=== PATIENT | female | born 1955 | race Caucasian/White ===

== ENCOUNTER 2019-01-17 10:45 | Inpatient (IN) | payer OTHER, MEDICARE ==
[2019-01-11 16:45] VITALS: BMI 26.2
--- NOTE | 2019-01-17 07:33 | HP ---
History & Physical Update - History History: No Change - Physical Physical: No Change - Assessment Assessment: No Change - Plan Plan: No Change (Initial H&P copmpleted on 12/29/18 by her PCP is complete & accurate. No new medication or complaints. Chronic LBP (> 6 years) with RLE radiculopathy. Here today for L4/5 laminectomy.)
[2019-01-17] MEDS: oxyCODONE HCL 10 MG SUSTAINED ACTING TABLET PO STA (11:30)
[2019-01-17] MEDS ORDERED: MIDAZOLAM HCL 2 MG/2 ML SINGLE DOSE VIAL ONE ×3 (13:46→16:23)
[2019-01-17] MEDS ORDERED: BUPIVACAINE HCL/PF 0.5% (5 MG/ML) 30 ML VIAL IJ ONE (13:46)
[2019-01-17] MEDS ORDERED: GUM MASTIC/STORAX/MSAL/ALCOHOL 1 DRP DROPSBTL MC ONE (14:23)
[2019-01-17] MEDS ORDERED: methylPREDNISolone ACET (DEPO) 40 MG/1 ML VIAL ONE (14:23)
[2019-01-17] MEDS ORDERED: LIDOCAINE 1%/EPI 1:100000 (20 ML MULTI DOSE VIAL) ONE (14:23)
[2019-01-17] MEDS ORDERED: BUPIVACAINE HCL/PF 0.5% (5MG/ML) 10 ML VIAL ONE (14:40)
[2019-01-17] MEDS ORDERED: ceFAZolin SODIUM 1 GM VIAL ONE (15:01)
[2019-01-17] MEDS ORDERED: ONDANSETRON 4 MG/2 ML VIAL IVPUSH PRN (17:37)
--- NOTE | 2019-01-17 17:39 | OP ---
Operative Note - Note: Operative Date: 01/17/19 Pre-Operative Diagnosis: L4/5 stenosis with RLE radiculopathy Operation: L4/5 laminectomy (bilateral); repair durotomy (primarily) Findings: small dural tear (posterior, LUQ) Post-Operative Diagnosis: Same as Pre-op Surgeon: Paco Guy Floor Scraper: Melody Antoine Anesthesia: Spinal Estimated Blood Loss (mls): 30 Fluid Volume Replaced (mls): 1,300 Operative Report Dictated: Yes
[2019-01-17] MEDS ORDERED: oxyCODONE HCL 5 MG TABLET PO PRN (17:40)
[2019-01-17] MEDS ORDERED: ACETAMINOPHEN 1000 MG/100 ML VIAL (NON FORMULARY) IVPB PRN (17:40)
--- NOTE | 2019-01-17 17:40 | SURG ---
Surgery Information Officer Note Information Officer: Robles Love PA-C Date of Service: 01/17/19 Diagnosis: L4/5 stenosis w/ right lower extremity radiculopathy Procedure: L4/5 Laminectomy (bilateral); repair dural tear I was present for the entirety of the operative procedure. For further detail, please refer to operative report. Visit type - Case Type Case Type: Scheduled - New patient This patient is new to me today: Yes Date on this admission: 01/17/19
[2019-01-17] MEDS ORDERED: ONDANSETRON 4 MG/2 ML VIAL ONE (18:03)
[2019-01-17] MEDS: LACTATED RINGERS SOLUTION 1,000 ML IV SCH (18:30)
[2019-01-17] MEDS: KETOROLAC TROMETHAMINE 30 MG/1 ML VIAL IVPUSH PRN (21:10)
--- NOTE | 2019-01-17 21:10 | OP ---
DATE OF OPERATION: 01/17/2019 PREOPERATIVE DIAGNOSIS: Spinal stenosis at L4-5. POSTOPERATIVE DIAGNOSIS: Spinal stenosis at L4-5. PROCEDURE PERFORMED: Laminectomy, L4-5. SURGEON: Paco Guy MD SPUN PASTE MACHINE OPERATOR: KERRY Fisher ESTIMATED BLOOD LOSS: 50 mL. IV FLUIDS: Per Anesthesia. ANESTHESIA: Spinal/TLIP. COMPLICATIONS: Dural tear closed with 6-0 Prolene suture. DISPOSITION: Patient was brought to the PACU in stable condition. INDICATION FOR SURGERY: The patient is a 64-year-old female who has been suffering from pain from her back down her legs. X-rays and MRI were completed, which noted that he has spinal stenosis at L4-5. She had gone through an exhaustive course of treatment for this, which included medications, physical therapy, as well as injections. Unfortunately her pain continued to persist despite all this. At this point, risks, benefits and alternatives were discussed, and the patient consented to surgery. OPERATIVE NOTE: The patient was brought to the operating room by the anesthesia staff. After appropriate patient identification was performed, spinal anesthesia was given. A TLIP block was also given. The patient was able to position herself prone onto the OR table, with all areas of bony prominences well padded. At this time, 2 needles were placed into the back to off the L4-5 level. An x-ray was taken to confirm this was correct. The needle was removed and 10 mL of lidocaine with epinephrine was injected in the back. At this time, her back was prepped and draped in a sterile manner. At this point, timeout was completed. An incision was made from the top of L4 down to the bottom of L5. Dissection was carried down to the fascia. The fascia was split open at this time, and appropriate retractors were then placed in. A spinal needle was placed onto the L4 lamina to off the L4-5 level. X-ray was taken to confirm this is correct. The needle was removed, and the interspinous ligament at L4-5 was removed. Portions of the L4-L5 spinous process were removed. Portions of lamina were removed. The flavum was removed. While taking off the flavum, a dural tear was noted. We found the dural tear, and it was closed with a 6-0 Prolene suture. The patient was able to do multiple Valsalva maneuvers and there was no leakage. A dural patch was placed over the dura, DuraSeal was placed over that. The fascia was closed with a number 1 Vicryl suture. The subcutaneous tissue was closed with 2-0 Vicryl suture. The skin was closed with 3-0 Monocryl suture. Dermabond was applied, Steri-Strips were applied, a sterile dressing was applied. The patient was placed supine on the OR bed, brought to the PACU in stable condition. Ryder CARROLL/[id number]
[2019-01-17] MEDS: MAGNESIUM OXIDE 400 MG TABLET (FP) PO SCH (21:11)
[2019-01-17] MEDS: diazePAM 2 MG TABLET PO SCH (21:11)
[2019-01-17] MEDS ORDERED: EXTRACT PO SCH (22:00)
[2019-01-17] MEDS ORDERED: IBUPROFEN 200 MG TABLET PO SCH (22:00)
[2019-01-17] MEDS ORDERED: CANNABIDIOL PO SCH (22:00)
[2019-01-17] MEDS ORDERED: ACETAMINOPHEN PO SCH (22:00)
[2019-01-18] MEDS: KETOROLAC TROMETHAMINE 30 MG/1 ML VIAL IVPUSH PRN ×2 (04:07→17:26)
--- NOTE | 2019-01-18 07:13 | PN ---
Progress Note (short form) - Note Progress Note: POD #1 s/p L4/5 laminectomy (bilateral); repair durotomy (primarily). Patient 23hr admit s/p above procedure. Prior too surgery, patient c/o LBP with LE radiculopathy (R>L). Now, s/p procedure she said she no longer has any pain and for the first time. She was ordered to be on STRICT bedrest (supine, 24hrs). Apparently, the aid had elevated her HOB to 40 degrees. And patient also ate two slices of pizza despite my order for CLEAR liquid diet to begin in the AM as I didn't want her eating/drinking while supine. Good news is the patient was able to tolerate both the diet as well as HOB elevated....denies any positional LESTER or photophobia. She is voiding spontaneously. Denies n/v/f/c, CP, palpitations, SOB or RENNER. Denies LE numbness/ tingling. Last Vital Signs Temp Pulse Resp BP Pulse Ox 98.3 F 57 L 18 118/64 100 01/18/19 06:32 01/18/19 06:32 01/18/19 06:32 01/18/19 06:32 01/18/19 06:32 Gen: nad Back: surgical dressing c/d/i. No evidence of hematoma or drainage. Periwound tissue soft. Neuro: GMNVI bilat LE: soft. nt. SCDs bilat <Robles Love P - Last Filed: 01/18/19 07:22> - Note Progress Note: Hali is comfortable She was able to get OOB No headaches Will have her walk with PT <Paco Guy - Last Filed: 01/18/19 13:16> Problem List - Problems (1) Spinal stenosis, lumbar Assessment/Plan: POD #1 s/p L4/5 laminectomy (bilateral), repair durotomy (primarily), covered with duragen patch, tisseal. HOB to 45 degrees. May sit in chair and eat her breakfast OOB and ambulate with PT If patient remains LESTER free, she is cleared for DC home today. Above plan discussed with Dr. Guy and agrees. Code(s): M48.061 - SPINAL STENOSIS, LUMBAR REGION WITHOUT NEUROGENIC LUIZ <Robles Love P - Last Filed: 01/18/19 07:22>
[2019-01-18 07:50] LABS: HEMATOCRIT 27.6 % (32.4-45.2); HEMOGLOBIN 9.1 GM/dl (10.7-15.3); MCH 30.4 pg (25.7-33.7); MCHC 32.9 g/dl (32.0-36.0); MEAN CELL VOLUME 92.1 fl (80-96); MEAN PLT VOLUME 9.4 fl (7.5-11.1); PLATELET COUNT 205 K/MM3 (134-434); RDW 13.3 % (11.6-15.6)
[2019-01-18 07:55] LABS: CALCIUM 8.5 mg/dl (8.5-10); CREATININE 0.7 mg/dl (0.55-1.3); POTASSIUM 4.8 mmol/L (3.5-5.1)
--- NOTE | 2019-01-18 08:53 | PN ---
Progress Note, Physician Chief Complaint: s/p lumbar laminectomy under spinal anesthesia History of Present Illness: post op day one with TLIP block for post op pain control - Current Medication List Current Medications: Active Medications Acetaminophen (Ofirmev Injection -) 1,000 mg IVPB PRN PRN PRN Reason: If narcotics are ineffective Stop: 01/18/19 17:39 Amlodipine Besylate (Norvasc -) 5 mg PO DAILY [facility] Bupropion HCl (Wellbutrin -) 100 mg PO DAILY [facility] Diazepam (Valium -) 2 mg PO Q12H [facility] Last Admin: 01/17/19 21:11 Dose: 2 mg Escitalopram Oxalate (Lexapro -) 20 mg PO DAILY [facility] Lactated Ringer's (Lactated Ringers Solution) 1,000 mls @ 125 mls/hr IV ASDIR JOSE Last Admin: 01/17/19 18:30 Dose: 125 mls/hr Ketorolac Tromethamine (Toradol Injection -) 30 mg IVPUSH Q6H PRN PRN Reason: PAIN LEVEL 1-5 Stop: 01/22/19 17:39 Last Admin: 01/18/19 04:07 Dose: 30 mg Magnesium Oxide (Mag-Ox -) 200 mg PO HS [facility] Last Admin: 01/17/19 21:11 Dose: 200 mg Non-Formulary Medication (Cannabidiol (Cbd) Extract [Epidiolex]) 50 mg PO BID [facility] Non-Formulary Medication (Fexofenadine/Pseudoephedrine [Xi-D 24 Hour Tablet ]) 1 each PO DAILY [facility] Ondansetron HCl (Zofran Injection) 4 mg IVPUSH Q6H PRN PRN Reason: NAUSEA AND/OR VOMITING Last Admin: 01/17/19 18:06 Dose: 4 mg Oxycodone HCl (Roxicodone -) 5 mg PO Q4H PRN PRN Reason: PAIN LEVEL 1 - 3 Oxycodone HCl (Roxicodone -) 10 mg PO Q4H PRN PRN Reason: PAIN LEVEL 6-10 - Objective Vital Signs: Vital Signs Temperature 98.3 F 01/18/19 06:32 Pulse Rate 57 L 01/18/19 06:32 Respiratory Rate 18 01/18/19 06:32 Blood Pressure 118/64 01/18/19 06:32 O2 Sat by Pulse Oximetry (%) 100 01/18/19 06:32 Constitutional: Yes: Well Nourished Cardiovascular: Yes: WNL Respiratory: Yes: WNL Gastrointestinal: Yes: WNL Labs: CBC, BMP 01/18/19 07:05 01/18/19 07:05 Assessment/Plan No adverse effect of anesthetic, pain controlled, will sign off care at this time
[2019-01-18] MEDS: oxyCODONE HCL 5 MG TABLET PO PRN ×2 (09:04→17:26)
[2019-01-18] MEDS: ESCITALOPRAM OXALATE 20 MG TABLET (FP) PO SCH (09:05)
[2019-01-18] MEDS: buPROPion HCL 100 MG TABLET PO SCH (09:06)
[2019-01-18] MEDS: amLODIPine BESYLATE 5 MG TABLET (FP) PO SCH (09:06)
[2019-01-18] MEDS: diazePAM 2 MG TABLET PO SCH ×2 (09:06→21:34)
[2019-01-18] MEDS ORDERED: PATIENT'S OWN MEDICATION (NON-FORMULARY) (Fexofenadine/Pseudoephedrine [Allegra-D 24 Hour PO SCH (10:00)
[2019-01-18] MEDS: LACTATED RINGERS SOLUTION 1,000 ML IV SCH (21:35)
[2019-01-18] MEDS: MAGNESIUM OXIDE 400 MG TABLET (FP) PO SCH (21:35)
[2019-01-19] MEDS: oxyCODONE HCL 5 MG TABLET PO PRN ×2 (06:16→12:25)
[2019-01-19] MEDS: KETOROLAC TROMETHAMINE 30 MG/1 ML VIAL IVPUSH PRN ×2 (06:20→12:24)
[2019-01-19] MEDS: oxyCODONE HCL 10 MG SUSTAINED ACTING TABLET PO STA (07:51)
[2019-01-19] MEDS: buPROPion HCL 100 MG TABLET PO SCH (09:32)
[2019-01-19] MEDS: ESCITALOPRAM OXALATE 20 MG TABLET (FP) PO SCH (09:32)
[2019-01-19] MEDS: amLODIPine BESYLATE 5 MG TABLET (FP) PO SCH (09:32)
[2019-01-19] MEDS: diazePAM 2 MG TABLET PO SCH (09:32)
--- NOTE | 2019-01-19 10:10 | DS ---
Physical Exam: SUBJECTIVE: Patient seen and examined this am. Slight headache which was relieved with oral pain medications. Voiding without difficulty/no burning, oob to use the bathroom with out difficulty. No nausea, photophobia, CP or SOB OBJECTIVE: Vital Signs Temperature 97.9 F 01/19/19 09:23 Pulse Rate 64 01/19/19 09:23 Respiratory Rate 18 01/19/19 09:23 Blood Pressure 116/58 L 01/19/19 09:23 O2 Sat by Pulse Oximetry (%) 95 01/19/19 09:23 PHYSICAL EXAM GENERAL: The patient is awake, alert, and fully oriented.. LUNGS: Breath sounds equal, clear to auscultation bilaterally. HEART: Regular rate and rhythm. BACK: Incision c/d/i with steri-strips in place. No drainage/erythema or masses seen. Replaced dressing with 4x4 gauze and tegaderm. EXTREMITIES: 2+ pulses, warm, well-perfused, no edema or tenderness. SCDs/TEDS in place. NEUROLOGICAL: 5/5 dorsi/plantar flexion/EHL b/l. Normal speech, gait not observed. PSYCH: Normal mood, normal affect. LABS CBC,CMP WBC 6.0 K/mm3 (4.0-10.8) 01/18/19 07:05 RBC 3.00 M/mm3 (3.60-5.2) L 01/18/19 07:05 Hgb 9.1 GM/dl (10.7-15.3) L 01/18/19 07:05 Hct 27.6 % (32.4-45.2) L 01/18/19 07:05 MCV 92.1 fl (80-96) 01/18/19 07:05 MCH 30.4 pg (25.7-33.7) 01/18/19 07:05 MCHC 32.9 g/dl (32.0-36.0) 01/18/19 07:05 RDW 13.3 % (11.6-15.6) 01/18/19 07:05 Plt Count 205 K/MM3 (134-434) 01/18/19 07:05 MPV 9.4 fl (7.5-11.1) 01/18/19 07:05 Sodium 141 mmol/L (136-145) 01/18/19 07:05 Potassium 4.8 mmol/L (3.5-5.1) 01/18/19 07:05 Chloride 113 mmol/L (98-107) H 01/18/19 07:05 Carbon Dioxide 26 mmol/L (21-32) 01/18/19 07:05 Anion Gap 2 MMOL/L (8-16) L 01/18/19 07:05 BUN 21.0 mg/dl (7-18) H 01/18/19 07:05 Creatinine 0.7 mg/dl (0.55-1.3) 01/18/19 07:05 Est GFR (CKD-EPI)AfAm 105.38 01/18/19 07:05 Est GFR (CKD-EPI)NonAf 90.92 01/18/19 07:05 Random Glucose 87 mg/dl (74-106) 01/18/19 07:05 Calcium 8.5 mg/dl (8.5-10) 01/18/19 07:05 HOSPITAL COURSE: The patient was admitted to the Med-Surg Unit after an elective repair of their lumbar stenosis. Now, s/p L4-5 laminectomy with primary repair of dural tear. The day of surgery, the patient ambulated the hallways with assistance. Narcotic and non-narcotic pain management control was achieved with an oral and IV approach. Viridiana-operative IV ABX were administered. DVT prophylaxis was achieved with SCDs and early ambulation. She remained in the hospital for fever and managment of her dural tear. Upon discharge, the patient had no increase in headache symptoms with changes in movement/ambulation and her pain was well controlled. Narcotic scripts and or muscle relaxants were checked with [facility] [employer] SAL[employer] MANAGER prior to escibe. The discharge instructions and an oral pain management plan were reviewed with the patient. All questions answered. Above plan discussed with Dr. Guy and agreed. Date of Admission:01/18/19 Date of Discharge: 01/19/19 Minutes to complete discharge: 20 Visit type - Case Type Case Type: Scheduled - Emergency Emergency Visit: No - New patient This patient is new to me today: Yes Date on this admission: 01/19/19
--- NOTE | 2019-01-19 10:15 | DS ---
Physical Exam: [facility] Patient Name: TERRY ALONZO Date of : 1955 Patient Status: Inpatient Attending Provider: Paco Guy Date: 01/19/19 09:51 Initialization Date: 01/19/19 09:51 Physical Exam: SUBJECTIVE: Patient seen and examined this am. Slight headache which was relieved with oral pain medications. Voiding without difficulty/no burning, oob to use the bathroom with out difficulty. No nausea, photophobia, CP or SOB OBJECTIVE: Vital Signs Temperature 97.9 F 01/19/19 09:23 Pulse Rate 64 01/19/19 09:23 Respiratory Rate 18 01/19/19 09:23 Blood Pressure 116/58 L 01/19/19 09:23 O2 Sat by Pulse Oximetry (%) 95 01/19/19 09:23 PHYSICAL EXAM GENERAL: The patient is awake, alert, and fully oriented.. LUNGS: Breath sounds equal, clear to auscultation bilaterally. HEART: Regular rate and rhythm. BACK: Incision c/d/i with steri-strips in place. No drainage/erythema or masses seen. Replaced dressing with 4x4 gauze and tegaderm. EXTREMITIES: 2+ pulses, warm, well-perfused, no edema or tenderness. SCDs/TEDS in place. NEUROLOGICAL: 5/5 dorsi/plantar flexion/EHL b/l. Normal speech, gait not observed. PSYCH: Normal mood, normal affect. LABS CBC,CMP WBC 6.0 K/mm3 (4.0-10.8) 01/18/19 07:05 RBC 3.00 M/mm3 (3.60-5.2) L 01/18/19 07:05 Hgb 9.1 GM/dl (10.7-15.3) L 01/18/19 07:05 Hct 27.6 % (32.4-45.2) L 01/18/19 07:05 MCV 92.1 fl (80-96) 01/18/19 07:05 MCH 30.4 pg (25.7-33.7) 01/18/19 07:05 MCHC 32.9 g/dl (32.0-36.0) 01/18/19 07:05 RDW 13.3 % (11.6-15.6) 01/18/19 07:05 Plt Count 205 K/MM3 (134-434) 01/18/19 07:05 MPV 9.4 fl (7.5-11.1) 01/18/19 07:05 Sodium 141 mmol/L (136-145) 01/18/19 07:05 Potassium 4.8 mmol/L (3.5-5.1) 01/18/19 07:05 Chloride 113 mmol/L (98-107) H 01/18/19 07:05 Carbon Dioxide 26 mmol/L (21-32) 01/18/19 07:05 Anion Gap 2 MMOL/L (8-16) L 01/18/19 07:05 BUN 21.0 mg/dl (7-18) H 01/18/19 07:05 Creatinine 0.7 mg/dl (0.55-1.3) 01/18/19 07:05 Est GFR (CKD-EPI)AfAm 105.38 01/18/19 07:05 Est GFR (CKD-EPI)NonAf 90.92 01/18/19 07:05 Random Glucose 87 mg/dl (74-106) 01/18/19 07:05 Calcium 8.5 mg/dl (8.5-10) 01/18/19 07:05 HOSPITAL COURSE: The patient was admitted to the Med-Surg Unit after an elective repair of their lumbar stenosis. Now, s/p L4-5 laminectomy with primary repair of dural tear. The day of surgery, the patient ambulated the hallways with assistance. Narcotic and non-narcotic pain management control was achieved with an oral and IV approach. Viridiana-operative IV ABX were administered. DVT prophylaxis was achieved with SCDs and early ambulation. She remained in the hospital for fever and managment of her dural tear. Upon discharge, the patient had no increase in headache symptoms with changes in movement/ambulation and her pain was well controlled. Narcotic scripts and or muscle relaxants were checked with [employer] [employer] prior to escibe. The discharge instructions and an oral pain management plan were reviewed with the patient. All questions answered. Above plan discussed with Dr. Guy and agreed. Date of Admission:01/18/19 Date of Discharge: 01/19/19 Minutes to complete discharge: 20 Visit type - Case Type Case Type: Scheduled - Emergency Emergency Visit: No - New patient This patient is new to me today: Yes Date on this admission: 01/19/19 Minutes to complete discharge: 20 Visit type - Case Type Case Type: Scheduled - Emergency Emergency Visit: No - New patient This patient is new to me today: Yes Date on this admission: 01/19/19
[2019-01-19 14:06] VITALS: BP 108/54; PULSE 68; TEMP 98.6
== END 2019-01-19 15:00 | disposition home or self-care (01) | DRG 519 ==
LOC: FASU 10:45 → FM/S 18:23 → FASU 01-18 21:33 → FM/S 01-18 21:33
PROVIDERS: ADMIT Orthopaedic Surgery Orthopaedic Surgery of the Spine; ATTEND Orthopaedic Surgery Orthopaedic Surgery of the Spine
PROC: 00QT0ZZ Repair Spinal Meninges, Open Approach (ICD-10-PCS; 2019-01-17)
PROC: 01NB0ZZ Release Lumbar Nerve, Open Approach (ICD-10-PCS; principal; 2019-01-17 15:13)
DX: M48.061 Spinal stenosis, lumbar region without neurogenic claudication (principal); G96.11 Dural tear; M54.16 Radiculopathy, lumbar region; R50.82 Postprocedural fever
CPT/HCPCS: 36415; 72100-TC-FY; 76000-TC-FY; 80048; 85027; 94760; 97116-GP; 97162-GP; J0131

== ENCOUNTER 2019-05-19 08:02 | Day surgery (SDC) | payer OTHER, MEDICARE ==
[2019-05-18 15:35] VITALS: BMI 28.1
[2019-05-19 09:32] VITALS: TEMP 98.7
[2019-05-19 11:32] VITALS: BP 141/67; PULSE 55
--- NOTE | 2019-05-20 17:01 | PATH ---
Surgical Pathology Report Patient Name: TERRY ALONZO [facility]. Rec. #: [id number] /Age/Gender: 1955 (Age: 64) / F Account: [id number] Location: [facility]-ENDOSCOPY Taken: 05/19/2019 Received: 05/19/2019 Reported: 05/20/2019 Physicians: SHANNAN GARVIN Specimen(s) Received TRANSVERSE COLON POLYP Clinical History Screening, family history of colon polyps Postoperative diagnosis: Polyp, hemorrhoids Final Diagnosis TRANSVERSE COLON POLYP, BIOPSY: POLYPOID COLONIC MUCOSA WITH FOCAL REACTIVE LYMPHOID AGGREGATE. Electronically Signed Nick Sepulveda M.D. Gross Description Received in formalin, labeled "biopsy transverse colon polyp" are 3 edwards, irregular portions of soft tissue ranging from 0.3-0.5 cm. in greatest dimension. The specimens are submitted in toto in one cassette. DL/05/19/2019 saudi/05/19/2019
== END 2019-05-19 10:20 | disposition home or self-care (01) ==
LOC: JASU-ENDO 08:02
PROVIDERS: ATTEND Internal Medicine Gastroenterology
PROC: 0DBL8ZX Excision of Transverse Colon, Via Natural or Artificial Opening Endoscopic, Diagnostic (ICD-10-PCS; principal; 2019-05-19 08:45)
DX: Z12.11 Encounter for screening for malignant neoplasm of colon (principal); Z83.71 Family history of colonic polyps; D12.3 Benign neoplasm of transverse colon
CPT/HCPCS: 88305-TC